=== PATIENT | female | born 1945 | race Caucasian/White ===

== ENCOUNTER 2021-09-04 10:31 | Outpatient (CLI) | payer OTHER | END 2021-09-04 10:37 | disposition home or self-care (01) | LOC: RAD 10:31 | PROVIDERS: ATTEND Internal Medicine | DX: M77.32 Calcaneal spur, left foot (principal); D49.2 Neoplasm of unspecified behavior of bone, soft tissue, and skin; C44.111 Basal cell carcinoma of skin of unspecified eyelid, including canthus ==

== ENCOUNTER 2021-09-05 08:15 | Outpatient (CLI) | payer OTHER | END 2021-09-05 08:28 | disposition home or self-care (01) | LOC: MRI 08:15 | PROVIDERS: ATTEND Otolaryngology | DX: H90.0 Conductive hearing loss, bilateral (principal); R42 Dizziness and giddiness | CPT/HCPCS: 70553; Q9965; 70543 ==